=== PATIENT | male | born 1970 | race Caucasian/White ===

== ENCOUNTER 2016-03-28 12:31 | Emergency (ER) | payer SELFPAY ==
[2016-03-28 12:59] VITALS: RESP 16; TEMP 98.5
[2016-03-28] MEDS ORDERED: OXYCODONE/APAP 5/325 TAB PO ONE (13:00)
[2016-03-28] MEDS ORDERED: LORazepam 1 MG TAB PO ONE (13:41)
--- NOTE | 2016-03-28 14:21 | UCPHY ---
[id number] ear after Qtip was pushing inside ear 8 days ago. Denies drainage. Time Seen by Provider: 03/28/16 13:28 HPI/ROS: CHIEF COMPLAINT: Right ear pain HISTORY OF PRESENT ILLNESS: This is a 46-year-old is male, immunocompetent, who presents with severe right ear pain. The pain extends anteriorly towards his right eye. It is sharp and severe. He has had right ear discomfort for the past week. He has also had some ringing in his ear and decreased hearing. He has been taking Advil for this. As he describes it, he had a foreign body in his ear last week--he thinks that something small like a bread crumb fell into his ear (he works in a restaurant), causing discomfort. The discomfort worsened and today he used a Q-tip with subsequent severe right ear pain. He has not had drainage. He does not have fever. No history of barotrauma. REVIEW OF SYSTEMS: A ten point review of systems was performed and is negative with the exception of the items mentioned in the HPI. Source: Patient Exam Limitations: No limitations - Personal History Current Tetanus Diphtheria and Acellular Pertussis (TDAP): Yes Tetanus Vaccine Date: within 10 years - Medical/Surgical History Hx Asthma: No Hx Chronic Respiratory Disease: No Hx Diabetes: No Hx Cardiac Disease: No Hx Renal Disease: No Hx Cirrhosis: No Hx Alcoholism: No Hx HIV/AIDS: No Hx Splenectomy or Spleen Trauma: No Other PMH: HTN, anxiety, rosacea, hernia - Family History Significant Family History: No pertinent family hx - Social History Smoking Status: Former smoker Additional Social History: He lives with his . 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 - Physical Exam Exam: General Appearance: Alert. Vital signs reviewed. Blood pressure 159/82. Head: No mastoid tenderness, swelling, or erythema. Eyes: Pupils equal and round, no conjunctival injection, no discharge. Anicteric. ENT, Mouth: Dentition is in good repair. Gums appear healthy. Left tympanic membrane is normal. Right tympanic membrane is bulging, dull. The right external auditory canal is partially obscured by the significant bulging of his TM. Mucous membranes are moist, no oropharyngeal erythema or edema. Neck: No lymphadenopathy, supple. Respiratory: Lungs are clear to auscultation; no wheezes, rales, or rhonchi. Cardiovascular: Regular rate and rhythm; no murmur, rub, or gallop. Gastrointestinal: Abdomen is soft and nontender. Skin: Warm and dry, no rashes on exposed skin, normal color. Neurological: Alert and oriented. Moving all four extremities easily and equally. Psychiatric: Normal affect. Constitutional: Initial Vital Signs Temperature (C) 36.9 C 03/28/16 12:56 Heart Rate 74 03/28/16 12:56 Respiratory Rate 16 03/28/16 12:56 Blood Pressure 159/82 H 03/28/16 12:56 O2 Sat (%) 97 03/28/16 12:56 O2 Delivery Mode Room Air Allergies/Adverse Reactions: No Known Allergies Allergy (Verified 03/28/16 12:59) Home Medications: Medication Instructions Recorded Amoxicillin 500 mg PO TID 7 Days 03/28/16 Hydrocodone/APAP 5/325 [[place] 1 - 2 tab PO Q4 PRN #14 tab 03/28/16 5/325 (RX)] Norvasc 03/28/16 Paxil 03/28/16 Medical Decision Making ED Course/Re-evaluation: Immunocompetent male with one week of right ear discomfort--presents with worsening pain today after using a Q-tip. On exam he has significant bulging of the right tympanic membrane, presumably due to effusion. Although the literature has not shown significant benefit I am recommending decongestant and antihistamine in addition to antibiotics. He has been given a prescription for Percocet to use for pain control. He will follow up with his primary care physician. We reviewed the danger signs that should prompt him to return with these including persistent fever, intractable pain, facial swelling or mastoid tenderness. . He does not currently appear toxic or ill. Differential Diagnosis: Considered a differential diagnosis that includes but is not limited to otitis externa, otitis media (serous otitis and otitis with effusion), mastoiditis, cellulitis, and dental infection. - Data Points Medications Given: Discontinued Medications Lorazepam (Ativan) 1 mg PO EDNOW ONE Stop: 03/28/16 13:42 Last Admin: 03/28/16 13:45 Dose: 1 mg Oxycodone/Acetaminophen (Percocet 5/325) 2 tab PO EDNOW ONE Stop: 03/28/16 13:01 Last Admin: 03/28/16 13:03 Dose: 2 tab Departure - Departure Disposition: Home, Routine, Self-Care Clinical Impression: Otitis media with effusion Condition: Good Instructions: Otitis Media (ED) Additional Instructions: I recommend using both a decongestant and an anti histamine. It is not clear whether not these [id number] medications will be helpful in your situation but I think it is worth trying. I am prescribing an antibiotic, amoxicillin, to treat the infection. Take this antibiotic as prescribed. I am also giving you a prescription for some Vicodin (hydrocodone and Tylenol) to use for pain as needed. This is a narcotic. You should not drive or engage in potentially dangerous activities when taking this medication. I recommend that you follow up with Dr. Deng next week so that he can see how you are doing. If you are worse in any way--fever, pain and redness behind her ear, difficulty swallowing, worsening pain, any new or concerning symptoms--please be re-evaluated. Referrals: Kevin Deng MD [Primary Care Provider] - As per Instructions Prescriptions: Amoxicillin 500 mg PO TID 7 Days Hydrocodone/APAP 5/325 [[place] 5/325 (RX)] 1 - 2 tab PO Q4 PRN #14 tab PRN Reason: pain - PQRS PQRS Measurement: Does not apply.
[2016-03-28 14:34] VITALS: BP 154/98; PULSE 70; O2SAT 96
== END 2016-03-28 14:34 | disposition home or self-care (01) ==
LOC: CED 12:31
DX: H66.91 Otitis media, unspecified, right ear (principal); Z87.891 Personal history of nicotine dependence
CPT/HCPCS: 99214-PO; G0463-PO